=== PATIENT | female | born 2005 | race Caucasian/White ===

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

== ENCOUNTER 2025-01-26 14:09 | Outpatient (CLI) | payer OTHER, SELFPAY ==
[2025-01-26 20:50] LABS: Coronavirus 19, PCR Not Detected (NotDetected); Influenza A, PCR Not Detected (NotDetected); Influenza B, PCR Not Detected (NotDetected)
--- OUTSIDE RECORDS SUMMARY | 2025-01-27 11:28 | XMS_ITS | Encounter Summary ---
Author Organization Healthcare Address [address] [place] [address] Care Team Providers Care Edge Trimmer Name Role Phone Chintan Mcadams MD Primary Care Provider [phone] Jenny Soria Unavailable Unavailable Encounter Details Date Type Department Care Team (Late st Contact Info) Description 06/13/2023 [facility] [address] [place] [address] Eleonora Jo Lyly, BEAN SPROUT GROWER [address] [place] [address] Social History Tobacco Use Types Packs/Day Years [...] on filedocumented in this encounter Care Teams Edge Trimmer Relationship Specialty Start Date End Date Chintan Mcadams MD [address] [facility] [address] [place] [address] PCP - General 06/06/22 Jenny Soria [address] [place] [address] Sprinkler Fitter 06/06/22 documented as of this encounter
--- OUTSIDE RECORDS SUMMARY | 2025-01-27 11:28 | XMS_ITS | Clinical Summary ---
Author Organization [facility] Address [address] [place] [address] Care Team Providers Care Bead Wrapper Name Role Phone Tomas Bates M.D. Primary Care Provider [phone] Source Comments [facility] is fully rolled out with thefollowing exceptions:General Clinical Research [facility] Allergies No known active allergies Medications sertraline (ZOLOFT) 50 MG tablet Take by mouth. Active Social History Tobacco Use Types Packs/Day Years Used Date Smoking Tobacco: Never Assessed Intimate Partner Violence Answer Date R ecorded If you are in a relationship , do you feel safe in that relationship? No 10/06/2020 Safe in relationship? (18 and older) Not on file 10/06/2020 Safety and Environment Answer Date Mazin rded Do you have any concerns of physical abuse, sexual abuse, or neglect of your child? No 10/06/2020 Is an adult hurting you or your family? No 10/06/2020 Has someone ever touched you in a sexual way that was not ok with you? No 10/06/2020 Someone hurting you or family (18 and older) Not on file 10/06/2020 Historical abuse worry Not on file If you have firearms in the home, are they all in locked storage AND unloaded? Not on file 10/06/2020 Comments Unknown Sex and Gender Information Value Date Recorded Sex Assigned at Not on file Legal Sex Female 1:27 PM EDT Gender Identity Not on file Sexual Orientation Not on file Last Filed Vital Signs Vital Sign Reading Time Taken Comments Blood Pressure 126/67 10/06/2020 1:38 PM EDT Pulse 77 10/06/2020 1:38 PM EDT Temperature 37 C (98.6 F) 10/06/2020 1:38 PM EDT Respiratory Rate 16 10/06/2020 1:38 PM EDT Oxygen Saturation - - Inhaled Oxygen Concentration - - Weight 51.9 kg (114 lb 6.7 oz) 10/06/2020 1:39 P M EDT Height - - Body Mass Index - - Plan of Treatment Health Maintenance Due Date Last Done Comments MMR IMMUNIZATION (1 of 1 - S tandard series) 2006 DTAP/Tdap/Td IMMUNIZATION (1 - Tdap) 2012 VARICELLA IMMUNIZATION (1 of 2 - 13+ 2-dose series) 2018 HPV IMMUNIZATION (1 - 3-dose series) 2020 MENINGOCOCCAL B VACCINE (1 o f 2 - Standard) 2021 HEPATITIS B IMMUNIZATION (1 of 3 - 19+ 3-dose series) 2024 AMB SEASONAL FLU VACCINE (#1) 12/30/2024 COVID-19 Vaccine (1 - 2023-2 5 season) 2024 HIB IMMUNIZATION Aged Out No longer e ligible based on patient's age to complete this topic IPV IMMUNIZATION Aged Out No longer e ligible based on patient's age to complete this topic MCV4 IMMUNIZATION Aged Out No longer eligible based on patient's age to complete this topic PNEUMOCOCCAL IMMUNIZATION Aged Out No longer eligible based on patient's age to complete this topic Respiratory Syncytial Virus (RSV) <20mo Aged Out No longer eligible b ased on patient's age to complete this topic Insurance [facility] Care Teams Bead Wrapper Relationship Specialty Start Date End Date Tomas Bates M.D. [address] [facility], [facility] [place] [address] PCP - General 10/06/20
--- OUTSIDE RECORDS SUMMARY | 2025-01-27 11:28 | XMS_ITS | Encounter Summary ---
Author Organization Healthcare Address [address] [id number] Care Team Providers Care Commercial Loan Underwriter Name Role Phone Chintan Mcadams MD Primary Care Provider [phone] Jenny Soria Unavailable Unavailable Reason for Referral * Consultation (Routine) - Denied Specialty Diagnoses / Procedures Referred By Heri mccall Referred To Contact Adolescent Medicine Diagnoses Excessive, frequent and irregular menstruation Endometriosis Jo Crews, BUMPER OPERATOR [address] [place] [address] Phone: tel: fax: Referral ID Status Reason Start Date Expiration Date V isits Requested Visits Authorized [id number] Denied Specialty Services Required 11/27/2023 05/28/2025 1 0 Encounter Details Date Type Department Care Team (Latest Contact Info) Description 11/27/2023 [facility] [address] [place] [address] Jo Crews, BUMPER OPERATOR [address] [place] [address] Excessive, frequent and irregular menstruation (Primary Dx); [...] unspecified documented in this encounter Care Teams Commercial Loan Underwriter Relationship Specialty Start Date End Date Chintan Mcadams MD [address] [place] [address] [address] [place] [address] PCP - General 06/06/22 Jenny Soria [address] [place] [phone] Md Psychiatry 06/06/22 documented as of this encounter
--- OUTSIDE RECORDS SUMMARY | 2025-01-27 11:28 | XMS_ITS | Clinical Summary ---
Author Organization Healthcare Address [address] [place] [address] Care Team Providers Care Honeycomb Decapper Name Role Phone Chintan Mcadams MD Primary Care Provider [phone] Jenny Soria Unavailable Unavailable Medications sertraline (Zoloft) [...] 19.05% 02/15 10:53 AM EDT Growth Chart: [facility] (Girls, 2- 20 Years) Plan of Treatment Health Maintenance Due Date Last Done Comments [facility]-Depression Screening 2005 [facility]-Infant/Child/Adol SDOH Screenings 2005 Fluoride Varnish 08/16/2006 [facility]- SDOH Screenings 12/17/2023 [facility]-Adult SDOH Screenings 12/17/2023 FTD-INOPI-17 Vaccine ( season) 2024 10/04/2020, 09/13/2020 [facility]-Influenza Vaccine (#1) 2024 11/30/2016, [facility]-DTaP,Tdap,and Td Vaccines (7 - Td or Tdap) 01/06/2027 01/06/2017, 01/05/2010, 03/27/2007, Additional history exists [facility]-Zoster Vaccines (1 of 2) 12/17/2055 01/05/2010, 01/05/2007 [facility]-Hepatitis B Vaccines Completed 007, 02/28/2006, 2005 [facility]-HIB Vaccines Completed 01/05/2007, , 06/20/2006, Additional history exists [facility]-IPV Vaccines Completed 01/05/2010, , 07/25/2006, Additional history exists [facility]-Pneumococcal Vaccine: Pediatrics (0 to 5 Years) and At-Risk Patients (6 to 49 Years) Completed 01/05/2010, 07/25/2006, 06/20/2006, Additional history exists [facility]-Varicella Vaccines Completed 01/05/2010, 2006 HPV Vaccines Completed 11/26/2018, 01/06/2017 [facility]-Hepatitis A Vaccines Completed 02/12/2019, 10/30 [facility]-Rotavirus Vaccines Aged Out No lo nger eligible based on patient's age to complete this topic Insurance [facility] Care Teams Honeycomb Decapper Relationship Specialty Start Date End Date Chintan Mcadams MD [address] [facility] [address] [place] [address] PCP - General 06/06/22 Jenny Soria [address] [place] [address] [place] [phone] Setter Out 06/06/22
--- OUTSIDE RECORDS SUMMARY | 2025-01-27 11:28 | XMS_ITS | Encounter Summary ---
Author Organization Healthcare Address [address] [place] [address] Care Team Providers Care Commercial Makeup Artist Name Role Phone Tomas Bates MD Primary Care Provider [phone] Chintan Mcadams MD Primary Care Provider [phone] Jenny Soria Unavailable Unavailable Reason for Visit * Reason Comments Med Refill Encounter Details Date Type Department Care Team (Late st Contact Info) Description 10/11/2020 [facility] [address] [place] [address] Dylan Villanueva MD [address] [facility] [address] [place] [address] Social History Tobacco Use Types [...] on filedocumented in this encounter Care Teams Commercial Makeup Artist Relationship Specialty Start Date End Date Tomas Bates MD [address] [place] [address] PCP - General 09/11/20 06/05/22 Chintan Mcadams MD [address] [place] [address] [address] [place] [address] PCP - General 06/06/22 Jenny Soria [address] [place] [address] Roll Inspector 06/06/22 documented as of this encounter
--- OUTSIDE RECORDS SUMMARY | 2025-01-27 11:28 | XMS_ITS | Encounter Summary ---
Author Organization Healthcare Address [address] [place] [address] Care Team Providers Care Production Team Member Name Role Phone Chintan Mcadams MD Primary Care Provider [phone] Jenny Soria Unavailable Unavailable Encounter Details Date Type Department Care Team (Late st Contact Info) Description 06/19/2023 Community [facility] [address] [place] [address] Eleonora Jo Lyly, TURNER MACHINE OPERATOR [address] [place] [address] Menorrhagia with irregular cycle (Primary Dx) Social [...] Primary documented in this encounter Care Teams Production Team Member Relationship Specialty Start Date End Date Chintan Mcadams MD [address] [facility] [address] [place] [address] PCP - General 06/06/22 Jenny Soria [address] [place] [address] Induction Machine Operator 06/06/22 documented as of this encounter
== END 2025-01-26 23:59 ==
LOC: LAB.DROPOF 01-27 11:25
PROVIDERS: PCP Nurse Practitioner; Visit Provider Nurse Practitioner
DX: J06.9 Acute upper respiratory infection, unspecified (principal)
CPT/HCPCS: 87631